=== PATIENT | female | born 1995 | race Caucasian/White ===

== ENCOUNTER → 2018-09-29 | Outpatient (CLI) | payer BC ==
[~2018-09-29] MED LIST: PREN1TAB44
[2018-09-29 09:23] LABS: PLATELET COUNT, AUTOMATED 241 K/uL (150-450)
== END ==
LOC: LAB 08:00
PROVIDERS: ATTEND Advanced Practice Midwife
DX: Z34.91 Encounter for supervision of normal pregnancy, unspecified, first trimester (principal)
CPT/HCPCS: 36415; 81001; 85025; 86592; 86703; 86762; 86787; 86850; 86900; 86901; 87088; 87340

== ENCOUNTER → 2018-10-06 | Outpatient (CLI) | payer BC ==
[~2018-10-06] MED LIST changes: +AMOX-362 PO
== END ==
LOC: LAB 07:54
PROVIDERS: ATTEND Obstetrics & Gynecology
DX: Z11.3 Encounter for screening for infections with a predominantly sexual mode of transmission (principal); Z34.91 Encounter for supervision of normal pregnancy, unspecified, first trimester
CPT/HCPCS: 87491; 87591

== ENCOUNTER → 2019-01-02 | Outpatient (CLI) | payer MEDICAID ==
[~2019-01-02] MED LIST changes: +FLUO-177 PO
--- NOTE | 2019-01-02 09:51 | RADIOLOGY IMAGING REPORT ---
FACILITY: [facility] - [place] PATIENT NAME: Aundrea Lemus : 1995 MR: [id number] V: [id number] EXAM DATE: ORDERING PHYSICIAN: AUNDREA URIAS TECHNOLOGIST: Location: [facility] Patient: Aundrea Lemus : 1995 Visit/Account:[id number] Date of Sevice: 01/02/2019 EXAMINATION: Ultrasound transabdominal OB > 14 weeks with anatomic evaluation HISTORY: Anatomic survey COMPARISON: None. TECHNIQUE: Transabdominal imaging was performed for assessment of the fetus and maternal pelvic structures. T ransvaginal imaging was not performed. FINDINGS: Placenta: Anterior without previa. Uterus: Gravid, otherwise normal Cervix: Long and closed. Maternal Ovaries: Not visualized. Maternal and other adnexa findings: Not visualized Intrauterine gestations: One. presentation: Breech heart rate: Normal and regular at 136 bpm Amniotic fluid index: 13.57 cm Largest amniotic fluid pocket: 4.45 cm Gestational Parameters: BPD: 4.84 cm 20 weeks/ five days, 52% HC: 19.04 cm 21 weeks/ three days, 74% AC: 17.51 cm 22 weeks/ four days, 92% FL: 3.2 cm 20 weeks/ zero days, 22 Average ultrasound age (AUA): 21 weeks/two days, ANGELIQUE 05/13/2019 Estimated gestational age by LMP: 20 weeks/four days, ANGELIQUE 05/18/2019 Estimated weight (EFW): 413 grams +/- 60 grams EFW for LMP: 83 percentile Anatomic Survey: Intracranial structures, 4-chamber heart, stomach, kidneys, urinary bladder, spine, 3-vessel cord and cord insertion are unremarkable. Two upper and two lower extremities visualized. Cardiac ventricula r outflow tracts, palate and lips are unremarkable in appearance. IMPRESSION: Single viable fetus in breech presentation with an estimated gestational age by measurem ents of 21 weeks and two days. Estimated gestational age by LMP is 20 weeks and four days. Estimate d weight is 413 g equivalent to the 83rd percentile Report Dictated By: Willow Gregory MD at 01/02/2019 9:39 AM Report E-Signed By: Willow Gregory MD at 01/02/2019 9:43 AM WSN:[email or web address]
== END ==
LOC: US 01:32
PROVIDERS: ATTEND Advanced Practice Midwife
DX: Z34.02 Encounter for supervision of normal first pregnancy, second trimester (principal); Z36.89 Encounter for other specified antenatal screening; Z3A.21 21 weeks gestation of pregnancy
CPT/HCPCS: 76811

== ENCOUNTER 2019-02-01 21:45 | Outpatient (CLI) | payer MEDICAID ==
[~2019-02-01] VITALS: Ht 185.4 cm; Wt 109.3 kg
[2019-02-01 22:00] VITALS: BP 123/57; Ht 185.4 cm; Wt 109.3 kg
== END 2019-02-01 23:02 | disposition home or self-care (01) ==
LOC: L&D 21:45 → OB 21:45 → UNDOADMOB 21:45 → OB 21:45 → UNDODISOB 23:02 → L&D 23:02 → EDSTATUS 02-03 07:19
PROVIDERS: ATTEND Obstetrics & Gynecology
DX: O36.8120 Decreased fetal movements, second trimester, not applicable or unspecified (principal); Z3A.25 25 weeks gestation of pregnancy
CPT/HCPCS: 59025; G0463; 99213; G0378; G0379